=== PATIENT | male | born 1965 | race Caucasian/White ===

== ENCOUNTER 2022-09-21 13:14 | Emergency (ER) | payer OTHER, SELFPAY ==
--- NOTE | ~2022-09-21 | XR_ITS ---
EXAMINATION: XR SHOULDER, LEFT CLINICAL INFORMATION: Pain COMPARISON: None TECHNIQUE: Three views of the left shoulder. FINDINGS: No acute fracture or dislocation is seen.. Minimal acromioclavicular arthritis. Glenohumeral and acromioclavicular alignment is anatomic with normal joint space. No abnormal soft tissue calcifications. XR/XR shoulder LT min 2V IMPRESSION: No evidence of acute fracture. Minimal acromioclavicular arthritis.
[2022-09-21 13:38] VITALS: BP 143/82; PULSE 76; RESP 20; TEMP 36.3; O2SAT 98; BMI 32.9
--- NOTE | 2022-09-21 13:39 | ED.UPPEXIN ---
HPI - Extremity Injury (Upper) General Chief Complaint: Extremity Problem <ARIANNA Avalos - Last Filed: 09/21/22 13:41> Stated Complaint: L shoulder pain <ARIANNA Avalos - Last Filed: 09/21/22 13:41> Time Seen by Provider: 09/21/22 16:21 <ARIANNA Avalos - Last Filed: 09/21/22 13:41> Source: patient <Sheri Matson NP - Last Filed: 09/21/22 16:45> Mode of arrival: ambulatory <Sheri Matson NP - Last Filed: 09/21/22 16:45> Limitations: language barrier <Sheri Matson NP - Last Filed: 09/21/22 16:45> History of Present Illness HPI narrative: 57-year-old Bulgarian-speaking male with past medical history of chronic left shoulder pain related to arthritis presents to the emergency department today for an x-ray of his left shoulder. He states he was sent to the emergency department by his primary care provider for an x-ray to assess for worsening left shoulder arthritis. He denies any numbness, tingling, weakness in the left arm or shoulder. He denies any difficulty with range of motion. He denies chest pain, shortness of breath, fever, chills, left upper extremity edema. <Sheri Matson NP - Last Filed: 09/21/22 16:45> MD complaint: injury to: left and shoulder <Sheri Matson NP - Last Filed: 09/21/22 16:45> Related Data Allergies/Adverse Reactions: Allergies Allergy/AdvReac Type Severity Reaction Status Date / Time No Known Allergies Allergy Unverified 05/28/20 15:39 [No Known Allergies*] <ARIANNA Avalos - Last Filed: 09/21/22 13:41> Review of Systems Review of Systems: In addition to documented HPI above, the additional ROS was obtained: Constitutional: No Weight loss, No Fever, No Chills ENT/Mouth: No Ear Pain, No Nasal Congestion, No Sinus Pain, No Hoarseness, No sore throat, No Rhinorrhea, No Swallowing Difficulty Cardiovascular: No Chest Pain, No SOB Respiratory: No Cough, No Sputum, No Wheezing Gastrointestinal: No Nausea, No Vomiting, No Diarrhea, No Constipation, No Abdominal pain Genitourinary: No Dysuria, No Urinary Frequency, No Hematuria, No Urinary Incontinence/retention, No Urgency, No Flank Pain Musculoskeletal: No Myalgias, No Joint Swelling Skin: No Skin Lesions, No rash Neuro: No Weakness, No Numbness, No Paresthesias <Sheri Matson NP - Last Filed: 09/21/22 16:45> Yes all other systems are reviewed and are negative <Sheri Matson NP - Last Filed: 09/21/22 16:45> [facility] Past Medical History Attestation statement: The following information was validated with the patient. <Sheri Matson NP - Last Filed: 09/21/22 16:45> Source: old records reviewed <Sheri Matson NP - Last Filed: 09/21/22 16:45> Social History Social History: Social History Alcohol intake: former Smoked in Last 30 Days: Yes Advance Directives: No Advance Directives Information Provided: No <ARIANNA Avalos - Last Filed: 09/21/22 13:41> Physical Exam Vital Signs: Vital Signs: Last Vital Signs Temp 97.3 F 09/21/22 13:38 Pulse 76 09/21/22 13:38 Resp 20 09/21/22 13:38 BP 143/82 H 09/21/22 13:38 Pulse Ox 98 09/21/22 13:38 O2 Del Method 09/21/22 13:38 BMI result Body Mass Index 32.9 <ARIANNA Avalos - Last Filed: 09/21/22 13:41> Vital Signs: Last Vital Signs Temp 97.3 F 09/21/22 13:38 Pulse 76 09/21/22 13:38 Resp 20 09/21/22 13:38 BP 143/82 H 09/21/22 13:38 Pulse Ox 98 09/21/22 13:38 O2 Del Method 09/21/22 13:38 BMI result Body Mass Index 32.9 <Sheri Matson NP - Last Filed: 09/21/22 16:45> Nursing notes and vital signs reviewed. GENERAL APPEARANCE: A&0 x 4, generally well appearing, no acute distress HENMT: Normal to inspection, atraumatic, face symmetrical. Normal external ears, nose, and oropharynx clear. EYE: PERRLA, EOM intact, structures appear normal NECK: Supple without lymphadenopathy. No stiffness or restricted ROM. CHEST: Normal to inspection HEART: Normal rate and regular rhythm, normal S1/S2, no M/R/G LUNGS: LS CTA, moving air well. Able to speak in complete sentences. No crackles, wheezes, or rhonchi auscultated ABDOMEN: Soft, nontender, nondistended. Normal bowel sounds noted BACK: No CVAT, no obvious deformity EXTREMITIES: Moving all extremities without difficulty. No cyanosis, clubbing, or edema. Normal capillary refill. NEUROLOGICAL: Alert and oriented, moving all 4 extremities with equal strength. CN not formally tested but appearing grossly intact. Observed to ambulate with normal gait. Cognition normal SKIN: Warm and dry without any lesions, rash, or visible sores PSYCH: Cooperative, normal affect, normal thought process <Sheri Matson NP - Last Filed: 09/21/22 16:45> Course Course Course Narrative: RME - 57 y/o Bulgarian speaking male presenting with nontraumatic left shoulder pain that radiates to his left arm and hand for the last several months. No SOB or chest pain associated with the pain. XR ordered <ARIANNA Avalos - Last Filed: 09/21/22 13:41> Medical Decision Making Medical Decision Making MDM Narrative: 57-year-old Bulgarian-speaking male with past medical history of chronic left shoulder pain related to arthritis presents to the emergency department today for an x-ray of his left shoulder. He states he was sent to the emergency department by his primary care provider for an x-ray to assess for worsening left shoulder arthritis. Left shoulder x-ray with no evidence of acute fracture, or dislocation, minimal acromioclavicular arthritis noted. Pain Management discussed with patient and he states he has medication for his arthritis which works well and declines any additional medication. History physical and x-rays consistent with left shoulder arthritis. Low suspicion for nerve impingement, abscess. HPI, PE, diagnostics, and plan discussed with patient and family with no unanswered questions at this time. Patient educated to return to the emergency department with new, worsening, or concerning emergent symptoms. Recommended to follow-up with her primary care provider for further treatment and management. *Refer to Course for additional information on consultations, diagnostic interpretation, consultations, emergency department stay, conversations with patient and family, shared decision making with patient, and more information on medical decision making* <Sheri Matson NP - Last Filed: 09/21/22 16:45> Discharge Plan Discharge Clinical Impression: Chronic shoulder pain <ARIANNA Avalos - Last Filed: 09/21/22 13:41> Patient Disposition: Home, Self-Care <ARIANNA Avalos - Last Filed: 09/21/22 13:41> Instructions: Shoulder Pain (ED) <ARIANNA Avalos - Last Filed: 09/21/22 13:41> Additional Instructions: Your left shoulder x-ray shows no evidence of acute fracture or dislocation. Minimal acromioclavicular arthritis is noted <ARIANNA Avalos - Last Filed: 09/21/22 13:41> Referrals: Katherine Joseph MD [Primary Care Provider] - <ARIANNA Avalos - Last Filed: 09/21/22 13:41> Print Language: Bulgarian <ARIANNA Avalos - Last Filed: 09/21/22 13:41>
--- NOTE | 2022-09-21 16:30 | PC.NURSE ---
patient primary language Paraguayan , assessed with use of desk sergeant . a/ox4 . perrlla . breathing even and unlabored . lungs clear throughout .patient has limited movement and strength in left arm/ shoulder r/t arthritis . skin pink warm and dry . abdomen soft not tender . patient aware of plan of care .
--- NOTE | 2022-09-21 16:45 | PC.NURSE ---
a/ox4 . went over discharge instructions ordered by provider . patient to follow up with primary care care .
== END 2022-09-21 16:48 | disposition home or self-care (01) ==
PROVIDERS: Emergency Provider Emergency Medicine; PCP Internal Medicine
DX: M25.512 Pain in left shoulder (principal); Z79.899 Other long term (current) drug therapy
CPT/HCPCS: 73030; 99283; 99284

== ENCOUNTER 2022-11-03 22:27 | Emergency (ER) | payer OTHER, SELFPAY ==
--- NOTE | ~2022-11-03 | CT_ITS ---
EXAMINATION: NONCONTRAST HEAD CT INDICATION INFORMATION: Right-sided weakness COMPARISON: None TECHNIQUE: Noncontrast CT of the head was performed. DLP: 763 mGy-cm DOSE LOWERING TECHNIQUES: This CT examination was performed using dose optimization techniques as appropriate, variously including the following: - Automated exposure control - Adjustment of mA and/or kV according to patient size (this includes techniques or standardized protocols for targeted exams were dose is matched to indication/reason for exam; i.e. extremities or head) - Use of iterative reconstruction technique FINDINGS: There is no evidence of acute intracranial hemorrhage or territorial infarction. No abnormal mass-effect or midline shift is seen. Espinosa to white matter differentiation is well preserved. No extra-axial fluid collections are identified. The ventricles are normal in size. There is mild periventricular white matter hypoattenuation consistent with chronic small vessel ischemic disease. Mild volume loss is noted. Small lacunar infarcts noted in the bilateral basal ganglia. The osseous structures and soft tissues are normal. The mastoid air cells and visualized portions of the paranasal sinuses are well-aerated. CT/CT head for stroke IMPRESSION: No acute intracranial findings. This stroke protocol result was discussed with Dr. Cheatham on 11/03/2022 11:58 PM.
--- NOTE | ~2022-11-03 | CT_ITS ---
EXAMINATION: CT ANGIOGRAM HEAD CT ANGIOGRAM NECK CLINICAL INFORMATION: Right-sided weakness COMPARISON: CT head performed earlier same day TECHNIQUE: Initial noncontrast applied psychology chair imaging of the head and neck was performed. Comparison is made with noncontrast head CT from earlier today. Test bolus sequences followed by intravenous administration 100 mL of Omnipaque 350. Helical imaging was performed in the axial plane from the aortic arch to the skull vertex. Delayed postcontrast imaging of the head was also performed. The data was processed at the ambulatory technologist's workstation for generation of MIP sequences. Angled MIPs and volume rendered reformatted images were also generated at an offline 3D workstation. Stenoses are assessed in accordance with NASCET criteria unless otherwise indicated. This CT examination was performed using dose optimization techniques as appropriate, variously including the following: *Automated exposure control *Adjustment of mA and/or kV according to patient size (this includes techniques or standardized protocols for targeted exams where dose is matched to indication/reason for exam; i.e. extremities or head) *Use of iterative reconstruction technique DLP: 1643.43 mGy-cm mGy-cm FINDINGS: CT HEAD: Noncontrast head CT findings are discussed separately. No pathologic intra-axial enhancement within limitations of CT or regional oligemia. Evidence of prior functional endoscopic sinus surgery with left maxillary uncinectomy and antrostomy with widely patent postsurgical ostium. Polypoid mucosal disease within the nasal cavity, including opacification of the olfactory recesses. Sclerotic wall thickening of the left maxillary sinuses reflecting sequelae of chronic sinusitis. Mild mucosal disease of the frontal sinuses. CTA HEAD: The internal carotid arteries are normal. The MCA vascular complexes are normal bilaterally. The INESSA complexes are patent with a dominant left A1 segment. The intradural vertebral arteries are patent. The basilar artery is normal. The posterior cerebral arteries are widely patent. No proximal large vessel occlusion. No aneurysms and no high flow vascular malformations. No evidence of dural arteriovenous fistula. Delayed phase acquisition demonstrates normal opacification of the dural venous sinuses. CTA NECK: Limited evaluation due to motion artifact. Two vessel branching pattern of the arch with left common carotid artery arising from the brachiocephalic trunk. Origins of the great vessels are widely patent. The common carotid arteries, carotid bifurcations and bilateral internal carotid arteries are patent, noting retropharyngeal course of the left common carotid and proximal external carotid arteries. The left vertebral artery is dominant. The vertebral artery ostia are widely patent. Both vertebral arteries are widely patent throughout their extracranial cervical course, noting artifactual attenuated opacification of the left V1 segment. CT NECK: Grossly unremarkable appearance of the aerodigestive tract. The salivary glands are unremarkable. The thyroid gland is unremarkable. No pathologically enlarged cervical chain lymph nodes. Multilevel moderate discogenic disease with endplate osteophytes, uncovertebral joint hypertrophy, and mild facet arthrosis osteophytes The visualized lung apices and upper mediastinum are within normal limits. Background of congenital cervical spinal canal stenosis resulting in multilevel apparent moderate spinal canal stenosis, particularly at C3-C4. Multilevel moderate to severe neural foraminal stenosis. CT/CT angio head neck stroke IMPRESSION: 1. No acute arterial occlusion or hemodynamically significant stenosis within the head or neck. 2. Background of congenital cervical spinal canal stenosis with superimposed spondylosis contributing to multilevel apparent moderate spinal canal stenosis and high-grade neural foraminal narrowing. Consider further evaluation with cervical spine MRI if there is referrable cervical myelopathy/radiculopathy.
[2022-11-03 22:45] VITALS: BP 171/86; PULSE 102; PULSE 106; RESP 16; O2SAT 95; O2SAT 98; BMI 37.3
[2022-11-03 22:50] VITALS: BP 157/94; PULSE 91; PULSE 93; RESP 15; TEMP 36.4; O2SAT 97
--- NOTE | 2022-11-03 23:26 | ECG_ITS ---
Test Reason : weakness Blood Pressure : / mmHG Vent. Rate : 079 BPM Atrial Rate : 079 BPM P-R Int : 170 ms QRS Dur : 088 ms QT Int : 370 ms P-R-T Axes : 069 019 025 degrees QTc Int : 424 ms Normal sinus rhythm Normal ECG When compared with ECG of 19-OCT-2018 03:20, No significant change was found Referred By: Manoj Menjivar Electronically Signed By:EDGARDO FIELDS
--- NOTE | 2022-11-03 23:26 | ED_ITS ---
HPI - Neuro Symptoms/Deficit General Chief Complaint: ETOH/Substance Use Stated Complaint: ETOH Time Seen by Provider: 11/03/22 22:58 Source: patient Mode of arrival: EMS Limitations: no limitations History of Present Illness HPI Narrative: Patient with history of alcohol abuse was at his sister's house had few drinks around 21:00 and started walking noticed has difficulty walking because of the weakness to the right side patient came here at 22:45. No headache no fall. No tremors Related Data Previous Rx's Medication Instructions Recorded folic acid 1 mg tablet 1 mg PO DAILY #90 tabs 11/04/22 thiamine HCl (vitamin B1) 100 mg 100 mg PO DAILY #90 tabs 11/04/22 tablet Allergies Allergy/AdvReac Type Severity Reaction Status Date / Time No Known Allergies Allergy Unverified 05/28/20 15:39 [No Known Allergies*] Review of Systems Review of Systems: Yes all other systems are reviewed and are negative [facility] Social History Social History Alcohol intake: current Smoked in Last 30 Days: Yes Use of substances other than those prescribed or required for medical reasons: No Substance Use Type: Marijuana Advance Directives: No Advance Directives Information Provided: No Physical Exam Vital Signs: Vital Signs: Last Vital Signs Temp 97.6 F 11/03/22 22:50 Pulse 91 11/03/22 22:50 Resp 15 11/03/22 22:50 BP 157/94 H 11/03/22 22:50 Pulse Ox 97 11/03/22 22:50 O2 Del Method 11/03/22 22:50 BMI result Body Mass Index 37.3 Appearance: Alert. Oriented X3. No acute distress. Eyes: PERRLA, No Nystagmus ENT: Pharynx normal. Oral Mucosa moist Neck: Normal inspection. Neck supple. CVS: Normal heart rate and rhythm. Pulses normal. Respiratory: No respiratory distress. Equal air entry bilateral, no wheezing/rales/rhonchi Abdomen: Soft and nontender. Bowel sounds are present, no mass palpable, no CVA tenderness Skin: Skin warm and dry. Normal skin color. Normal skin turgor. Extremities: No lower extremity edema. No calf tenderness Neuro: Oriented X 3. Right-sided weakness-4/5. No sensory deficit.No cerebellar signs , cranial nerves II-XII intact Medications Administered Discontinued Medications Generic Name Dose Route Start Last Admin Trade Name Polina PRN Reason Stop Dose Admin Iohexol 100 ml 11/04/22 00:18 11/04/22 00:18 Iohexol 350 Mg/Ml 100 Ml Infus..Btl IV 11/04/22 00:19 100 ml ONCE ONE Administration Lorazepam 1 mg 11/04/22 00:03 11/04/22 00:14 Lorazepam 2 Mg/Ml Vial IVPUSH 11/04/22 00:04 1 mg ONCE ONE Administration Morphine Sulfate 4 mg 11/03/22 23:39 11/04/22 00:14 Morphine Sulfate 4 Mg/Ml Cartridge IVPUSH 11/03/22 23:40 4 mg ONCE ONE Administration Protocol Ondansetron HCl 4 mg 11/03/22 23:39 11/04/22 00:14 Ondansetron Hcl 4 Mg/2 Ml Vial IVPUSH 11/03/22 23:40 4 mg ONCE ONE Administration Medical Decision Making Medical Decision Making [facility] Narrative: 23;55 patient re-examined plain CT scan was negative for acute patient able to move right upper extremity lower extremity pretty well now complaining of pain in the left arm NIHSS score is 0 patient is extremely anxious and intoxicated Patient back to normal at time of discharge no focal deficits noticed CTA is negative for LVO, patient does have chronic neck pain at this time there is no signs of CVA discharge patient home advised to stop drinking and start taking thiamine and folic acid Differential Diagnosis CVA/brain tumor/metabolic encephalopathies-/alcohol intoxication Lab Data [facility] Lab Attestation statement: I reviewed the patient's lab results. 11/03/22 23:30 11/03/22 23:30 Labs: Lab Results 11/03/22 11/03/22 11/03/22 Range/Units 23:30 23:30 23:30 WBC 8.8 (4.8-10.8) X10*3/uL RBC 4.19 L (4.60-5.80) X10*6/uL Hgb 12.8 L (14.0-18.0) g/dl Hct 38.5 L (42.0-52.0) % MCV 91.9 (80.0-98.0) fL MCH 30.5 (27.0-33.0) pg MCHC 33.2 (31.0-36.0) g/dl RDW 13.7 (11.0-16.0) % Plt Count 169 (160-400) X10*3/uL MPV 10.5 (9.4-12.4) fL Immature Gran % (Auto) 0.2 (0.0-0.4) % Neut % (Auto) 52.1 (45-73) % Lymph % (Auto) 32.8 (20-40) % Banner % (Auto) 9.7 (2-11) % Eos % (Auto) 4.4 H (0-4) % Baso % (Auto) 0.8 (0-2) % Lymph # (Auto) 2.9 (1.2-4.9) X10*3/uL Banner # (Auto) 0.9 (0.1-1.2) X10*3/uL Eos # (Auto) 0.4 (0.0-0.4) X10*3/uL Baso # (Auto) 0.1 (0.0-0.2) X10*3/uL Abs Immat Gran (auto) 0.02 (0.00-0.03) X10*3/uL Absolute Neuts (auto) 4.6 (2.0-8.3) x10*3/uL Absolute Nucleated RBC 0.000 (0.0-0.012) X10*3/uL Nucleated RBC % (auto) 0.0 (0.0-0.2) /100WBC PT 11.1 (10.0-13.1) SEC INR 1.0 (0.9-1.1) APTT 28.1 (26.0-36.4) SEC Sodium 141 (135-145) mmol/L Potassium 4.0 (3.3-5.1) mmol/L Chloride 110 H (96-108) mmol/L Carbon Dioxide 20 L (22-29) mmol/L Anion Gap 15 (12-20) BUN 18 H (9-16) mg/dL Creatinine 1.06 (0.5-1.4) mg/dL Estim Creat Clear Calc 102.3 Estimated GFR > 60 Random Glucose 157 H (60-115) mg/dL Calcium 8.7 (8.4-10.2) mg/dL Magnesium 2.1 (1.6-2.6) mg/dL Total Bilirubin 0.2 (0.0-1.0) mg/dL AST 16 (5-37) U/L ALT 17 (0-40) U/L Alkaline Phosphatase 59 (39-117) U/L Total Creatine Kinase 170 (38-174) U/L Troponin I High Sens (<3.5-35.0) ng/L Total Protein 6.8 (6.5-8.0) g/dL Albumin 3.8 (3.5-5.0) g/dL Ethyl Alcohol 47 mg/dL 11/03/22 Range/Units 23:30 WBC (4.8-10.8) X10*3/uL RBC (4.60-5.80) X10*6/uL Hgb (14.0-18.0) g/dl Hct (42.0-52.0) % MCV (80.0-98.0) fL MCH (27.0-33.0) pg MCHC (31.0-36.0) g/dl RDW (11.0-16.0) % Plt Count (160-400) X10*3/uL MPV (9.4-12.4) fL Immature Gran % (Auto) (0.0-0.4) % Neut % (Auto) (45-73) % Lymph % (Auto) (20-40) % Banner % (Auto) (2-11) % Eos % (Auto) (0-4) % Baso % (Auto) (0-2) % Lymph # (Auto) (1.2-4.9) X10*3/uL Banner # (Auto) (0.1-1.2) X10*3/uL Eos # (Auto) (0.0-0.4) X10*3/uL Baso # (Auto) (0.0-0.2) X10*3/uL Abs Immat Gran (auto) (0.00-0.03) X10*3/uL Absolute Neuts (auto) (2.0-8.3) x10*3/uL Absolute Nucleated RBC (0.0-0.012) X10*3/uL Nucleated RBC % (auto) (0.0-0.2) /100WBC PT (10.0-13.1) SEC INR (0.9-1.1) APTT (26.0-36.4) SEC Sodium (135-145) mmol/L Potassium (3.3-5.1) mmol/L Chloride (96-108) mmol/L Carbon Dioxide (22-29) mmol/L Anion Gap (12-20) BUN (9-16) mg/dL Creatinine (0.5-1.4) mg/dL Estim Creat Clear Calc Estimated GFR Random Glucose (60-115) mg/dL Calcium (8.4-10.2) mg/dL Magnesium (1.6-2.6) mg/dL Total Bilirubin (0.0-1.0) mg/dL AST (5-37) U/L ALT (0-40) U/L Alkaline Phosphatase (39-117) U/L Total Creatine Kinase (38-174) U/L Troponin I High Sens 5.2 (<3.5-35.0) ng/L Total Protein (6.5-8.0) g/dL Albumin (3.5-5.0) g/dL Ethyl Alcohol mg/dL Independent Interpretation I performed an independent interpretation of an: EKG Interpretation: Normal sinus rhythm heart rate 79 beats per minute, no acute ST-T no acute ischemia NIH Stroke Scale Time: 23:29 Level of Consciousness: Alert Level of Consciousness Questions: Answers both questions correctly Level of Consciousness Commands: Performs both tasks correctly Best Gaze: Normal Visual: No visual loss Facial Palsy: Normal Motor Arm (Right): Drift Motor Arm (Left): No drift Motor Leg (Right): Drift Motor Leg (Left): No drift Limb Ataxia: Absent Sensory: Normal Best Language: No aphasia Dysarthia: Normal Extinction and Inattention: No abnormality Score: 2 Discharge Plan Discharge Clinical Impression: Alcohol abuse Patient Disposition: Home, Self-Care Instructions: Alcohol Use Disorder (ED) Additional Instructions: Stop drinking alcohol Take thiamine and folic acid daily Follow with PCP Prescriptions: New thiamine HCl (vitamin B1) 100 mg tablet 100 mg PO DAILY Qty: 90 0RF folic acid 1 mg tablet 1 mg PO DAILY Qty: 90 0RF Interventions: [place]-Suicide Risk Severity Scale Last Done: 11/03/22 22:50 ED Discharge Assessment Last Done: 11/04/22 01:41 Discharge Date/Time: 11/04/22 01:41
[2022-11-03 23:42] LABS: MANUAL DIFF FLAG NO
[2022-11-03 23:44] LABS: Basophils Absolute Auto 0.1 X10*3/uL (0.0-0.2); Basophils Percent Auto 0.8 % (0-2); Eosinophils Absolute Auto 0.4 X10*3/uL (0.0-0.4); Eosinophils Percent Auto 4.4 % (0-4); Hematocrit 38.5 % (42.0-52.0); Hemoglobin 12.8 g/dl (14.0-18.0); Imm Gran Abs Auto 0.02 X10*3/uL (0.00-0.03); Imm Gran Pct Auto 0.2 % (0.0-0.4); Lymphocytes Absolute Auto 2.9 X10*3/uL (1.2-4.9); Lymphocytes Percent Auto 32.8 % (20-40); Mean Corpuscular HGB Conc 33.2 g/dl (31.0-36.0); Mean Corpuscular Hemoglobin 30.5 pg (27.0-33.0); Mean Corpuscular Volume 91.9 fL (80.0-98.0); Mean Platelet Volume 10.5 fL (9.4-12.4); Monocytes Absolute Auto 0.9 X10*3/uL (0.1-1.2); Monocytes Percent Auto 9.7 % (2-11); Neutrophils Absolute Auto 4.6 x10*3/uL (2.0-8.3); Neutrophils Percent Auto 52.1 % (45-73); Platelet Count 169 X10*3/uL (160-400); Red Blood Count 4.19 X10*6/uL (4.60-5.80); Red Cell Distribution Width 13.7 % (11.0-16.0); White Blood Count 8.8 X10*3/uL (4.8-10.8)
[2022-11-03 23:50] LABS: Prothrombin Time 11.1 SEC (10.0-13.1)
[2022-11-03 23:52] LABS: Partial Thromboplastin Time 28.1 SEC (26.0-36.4)
[2022-11-03 23:56] LABS: Stroke Lab Use COMPLETE
[2022-11-04 00:07] LABS: Troponin-I High Sensitivity 5.2 ng/L (<3.5-35.0)
[2022-11-04 00:14] LABS: Alanine Aminotransferase 17 U/L (0-40); Albumin Level 3.8 g/dL (3.5-5.0); Alkaline Phosphatase 59 U/L (39-117); Anion Gap 15 (12-20); Aspartate Amino Transferase 16 U/L (5-37); Bilirubin Total 0.2 mg/dL (0.0-1.0); Blood Urea Nitrogen 18 mg/dL (9-16); Calcium 8.7 mg/dL (8.4-10.2); Carbon Dioxide 20 mmol/L (22-29); Chloride 110 mmol/L (96-108); Creatinine Clr Calc Pharmacy 102.3; Estimated Glomerular Filt Rate > 60; Ethanol 47 mg/dL; Glucose Random 157 mg/dL (60-115); Magnesium 2.1 mg/dL (1.6-2.6); Sodium 141 mmol/L (135-145); Total Protein 6.8 g/dL (6.5-8.0)
[2022-11-04] MEDS: ondansetron HCL 4 MG/2 ML VIAL IVPUSH (00:14)
[2022-11-04] MEDS: Morphine Sulfate 4 MG/ML CARTRIDGE IVPUSH (00:14)
[2022-11-04] MEDS: LORazepam 2 MG/ML VIAL 1 MG IVPUSH (00:14)
[2022-11-04] MEDS: iohexoL 350 MG/ML 100 ML INFUS..BTL IV (00:18)
== END 2022-11-04 01:41 | disposition home or self-care (01) ==
PROVIDERS: Emergency Provider Internal Medicine
DX: F10.10 Alcohol abuse, uncomplicated (principal); Y90.2 Blood alcohol level of 40-59 mg/100 ml; R53.1 Weakness; F41.9 Anxiety disorder, unspecified; F12.90 Cannabis use, unspecified, uncomplicated
CPT/HCPCS: 36415; 70450; 70496; 70498; 80053; 82077; 82550; 83735; 84484; 85025; 85610; 85730; 93005; 96374; 96375; 99284; 99285; J2060; J2270; J2405; Q9967

== ENCOUNTER 2025-06-21 08:14 | Emergency (ER) | payer OTHER, SELFPAY ==
--- NOTE | ~2025-06-21 | CT_ITS ---
CLINICAL HISTORY: Right lower abdominal pain, right inguinal hernia CT abdomen and pelvis with contrast Comparison: CT - CT ABDOMEN PELVIS W IV CON - 06/21/25 09:16 EDT Findings: No consolidation or effusion. The liver, gallbladder, spleen, adrenal glands and pancreas are unremarkable. The kidneys, ureters are within normal limits. The bladder is significantly thick-walled. The prostate gland is unremarkable. There is no bowel obstruction or free air. There is gas and fluid throughout nondistended small and large bowel, nonspecific. Right-sided fat containing inguinal hernia. Mild atherosclerotic disease noted. No retroperitoneal or mesenteric adenopathy. No acute osseous finding. Impression: Abnormally thick-walled bladder. Correlation for cystitis. Gas and fluid throughout nondistended small and large bowel, nonspecific. This can be seen with mild enteritis. No obstruction, free air or abscess. Additional incidental findings. This document has been electronically signed by: Ziyad Morris MD on 06/21/2025 10:14:02
[2025-06-21 08:17] VITALS: BP 140/89; PULSE 96; RESP 18; TEMP 36.3; O2SAT 97; BMI 30.9
[2025-06-21 08:46] LABS: Hematocrit 37.4 % (42.0-52.0); Hemoglobin 12.5 g/dl (14.0-18.0); Imm Gran Abs Auto 0.03 X10*3/uL (0.00-0.03); Imm Gran Pct Auto 0.2 % (0.0-0.4); Lymphocytes Absolute Auto 2.6 X10*3/uL (1.2-4.9); MANUAL DIFF FLAG NO; Mean Corpuscular HGB Conc 33.4 g/dl (31.0-36.0); Mean Corpuscular Hemoglobin 30.8 pg (27.0-33.0); Mean Corpuscular Volume 92.1 fL (80.0-98.0); NRBC Abs Auto 0.000 X10*3/uL (0.0-0.012); NRBC Pct Auto 0.0 /100WBC (0.0-0.2); Platelet Count 168 X10*3/uL (160-400); Red Blood Count 4.06 X10*6/uL (4.60-5.80); White Blood Count 12.2 X10*3/uL (4.8-10.8)
--- NOTE | 2025-06-21 08:56 | PC.NURSE ---
Reports lower abdominal pain x 4 days along with a pain near his penis- states area is bulging. Reports vomited x 2 yesterday, nausea, and diarrhea. niece at bedside stating patients brother yesterday, states patient has hx of umbilical hernia repair in the past.
--- OUTSIDE RECORDS SUMMARY | 2025-06-21 09:01 | XMS_ITS | Encounter Summary ---
Author Organization [employer] Address [address] [place] [address] Care Team Providers Care Press Machine Operator Name Role Phone Katheirne Joseph MD Primary Care Provide r Reason for Visit * Reason Onset Date Comments Med Refill 01/06/2023 Encounter Details Date Type Department Care Team (Late st Contact Info) Description 01/06/2023 Telephone [facility] [address] [place] [address] Katherine Joseph MD [address] [place] [address] Med Refill Social History Tobacco Use Types Packs/Day Years Used Date Smoking Tobacco: Every Day Cigarettes Passive Smoke Exposure: Current Sex and Gender Information Value Date Recorded Sex Assigned at Male 07/11/2022 10:14 AM EDT Legal Sex Male 10:14 AM EDT Gender Identity Male 07/11/2022 10:14 AM EDT Sexual Orientation Straight 07/11/2022 10 :14 AM EDT documented as of this encounter Miscellaneous Notes * Telephone Encounter - Deanne Chan LPN - 01/06/2023 1:35 PM EDT Medication pended to PCP awaiting approval. * Telephone Encounter - Jewell James Adin - 01/06/2023 1:19 PM EDT Tc from pt requesting med refill on Acetaminophen ER 650 Mg Tablet, extended release Please sent to [facility] - [place], [place] - [address] documented in this encounter Plan of Treatment Upcoming Encounters Date Type Department Care Team (Late st Contact Info) Description 08/18/2025 11:15 AM EST Office Visit [facility] [address] [place] [address] Katherine Joseph MD [address] [place] [address] documented as of this encounter Visit Diagnoses Not on filedocumented in this encounter Care Teams Press Machine Operator Relationship Specialty Start Date End Date Katherine Joseph MD [address] [place] [id number] PCP - General Family Medicine 05/23/18 documented as of this encounter
--- OUTSIDE RECORDS SUMMARY | 2025-06-21 09:01 | XMS_ITS | Encounter Summary ---
Author Organization [facility] Address [address] [facility] 7t [place] [address] Care Team Providers Care Post Anesthesia Nurse Name Role Phone Katherine Joseph MD Primary Care Provide r Reason for Visit * Reason Onset Date Comments Appointment Request 01/06/2023 Encounter Details Date Type Department Care Team (Late st Contact Info) Description 01/06/2023 Telephone [facility] MED[facility]INE [address] [place] [address] [phone] Katherine Joseph MD [address] [place], [place] [phone] Appointment Request Social History Tobacco Use Types Packs/Day Years [...] encounter Miscellaneous Notes * Telephone Encounter - Jewell Oakley - 01/06/2023 1:18 PM EDT Tc from pt and DRUM TESTER requesting an appt with provider in regards to program to gain more hours. Please contact DRUM TESTER at [phone] documented in this encounter Plan of Treatment Upcoming Encounters Date Type Department Care Team (Late st Contact Info) Description 08/18/2025 11:15 AM EST Office Visit [facility] [address] [place] [phone] Katherine Joseph MD [address] [place], [place] [phone] documented as of this encounter Visit Diagnoses Not on filedocumented in this encounter Care Teams Post Anesthesia Nurse Relationship Specialty Start Date End Date Katherine Joseph MD [address] [place], [place] [phone] PCP - General Family Medicine 05/23/18 documented as of this encounter
--- OUTSIDE RECORDS SUMMARY | 2025-06-21 09:01 | XMS_ITS | Encounter Summary ---
Author Organization [employer] Address [address] [facility] 7t [place] [address] Care Team Providers Care Digital Marketing Apprentice Name Role Phone Katherine Joseph MD Primary Care Provide r Reason for Visit * Reason Comments Med Refill Encounter Details Date Type Department Care Team ([facility] st Contact Info) Description 01/01/2024 Refill [facility] [address] [place], [place] [phone] Katherine Joseph MD [address] [place], [place] [phone] Social History Tobacco Use Types Packs/Day Years Used Date Smoking Tobacco: Some Days Cigarettes Passive Smoke Exposure: Current Alcohol Use Standard Drinks/Week Comments Yes 0 (1 standard drink = 0.6 oz pur e alcohol) oca, beer Housing Stability Answer Date Recorded What is your housing situation today? I have rocconorberto villanueva 07/24/[address] you li ve. Do you have problems with any of the following? None of the above 07/24/2023 Food Insecurity Answer Date Recorded Within the past 12 months, y ou worried that your food would run out before you got money to buy more: Never True 07/24/2023 Within the past 12 months,th e food you bought just didn't last and you didn't have enough money to get more: Never True Transportation Answer Date Recorded In the past 12 months, has l ack of transportation kept you from medical appts, meetings, work or from getting things needed for daily living? No 07/24/2023 Utilities Answer Date Recorded In the past 12 months, has t he electric, gas, oil or water company threatened to shut off services in your home? No 07/24/2023 Depression Answer Date Recorded Patient Health Questionnaire-2 Score 0 07/24/2023 Sex and Gender Information Value Date Recorded Sex Assigned at Male 07/11/2022 10:14 AM EDT Legal Sex Male 10:14 AM EDT Gender Identity Male 07/11/2022 10:14 AM EDT Sexual Orientation Straight 07/11/2022 10 :14 AM EDT documented as of this encounter Plan of Treatment Upcoming Encounters Date Type Department Care Team (Late st Contact Info) Description 08/18/2025 11:15 AM EST Office Visit [facility] [address] [place] [address] Katherine Joseph MD [address] [place] [phone] documented as of this encounter Visit Diagnoses Not on filedocumented in this encounter Care Teams Digital Marketing Apprentice Relationship Specialty Start Date End Date Katherine Joseph MD [address] [place] [phone] PCP - General Family Medicine 05/23/18 documented as of this encounter
--- OUTSIDE RECORDS SUMMARY | 2025-06-21 09:01 | XMS_ITS | Encounter Summary ---
Author Organization [employer] [facility] Address [address] [facility] 7t [place] [address] Care Team Providers Care Assistant Secretary Name Role Phone Katherine Joseph MD Primary Care Provide r Encounter Details Date Type Department Care Team (Late Contact Info) Description 10/12/2022 Orders Only [facility] MED[facility]INE [address] [place] [phone] Dana Vidal MD [address] [place] [phone] Blurry vision (Primary Dx) Social History Tobacco Use Types Packs/Day Years Used Date Smoking Tobacco: Never Assessed Sex and Gender Information Value Date Recorded Sex Assigned at Male 07/11/2022 10:14 AM EDT Legal Sex Male 10:14 AM EDT Gender Identity Male 07/11/2022 10:14 AM EDT Sexual Orientation Straight 07/11/2022 10 :14 AM EDT documented as of this encounter Plan of Treatment Upcoming Encounters Date Type Department Care Team (Late st Contact Info) Description 08/18/2025 11:15 AM EST Office Visit [facility] [address] [place] [phone] Katherine Joseph MD [address] [place] [phone] documented as of this encounter Visit Diagnoses Diagnosis Blurry vision- Primary Other specified visual disturbances documented in this encounter Care Teams Assistant Secretary Relationship Specialty Start Date End Date Katherine Joseph MD [address] [place] [address] [phone] PCP - General Family Medicine 05/23/18 documented as of this encounter
--- OUTSIDE RECORDS SUMMARY | 2025-06-21 09:01 | XMS_ITS | Encounter Summary ---
Author Organization [employer] Address [address] [facility] 7t [place] [address] Care Team Providers Care Restuarant Crew Worker Name Role Phone Katherine Joseph MD Primary Care Provide r Encounter Details Date Type Department Care Team (Late st Contact Info) Description 06/21/2025 Orders Only [facility]PART[facility] Provider, Generic External Data Social History Tobacco Use Types Packs/Day Years Used Date Smoking Tobacco: Some Days Cigarettes Passive Smoke Exposure: Current Alcohol Use Standard Drinks/Week Comments Yes 0 (1 standard drink = 0.6 oz pur e alcohol) oca, beer Alcohol Answer Date Recorded Frequency of Alcohol Consumption Not on file 04/29/2024 Average Number of Drinks Not on file 024 Frequency of Binge Drinking Not on file 04/11 Score 0 04/29/2024 Depression Answer Date Recorded Patient Health Questionnaire-9 Score 0 07/30/2024 Patient Health Questionnaire-9 Score 0 07/30/2024 Last PHQ-9: Questionnaire Data Not on file 1 09/29/2023 Housing Stability Answer Date Recorded What is your housing situation today? I have rocco villanueva 07/24/[address] you [...] Date Recorded Patient Health Questionnaire-2 Score 0 07/30/2024 Internet Access Answer Date Recorded Internet Access Q1 Yes 05/13/2024 Internet Access Q2 Not on file 05/13/2024 Sex and Gender Information Value Date Recorded Sex Assigned at Male 07/11/2022 10:14 AM EDT Legal Sex Male 10:14 AM EDT Gender Identity Male 07/11/2022 10:14 AM EDT Sexual Orientation Straight 07/11/2022 10 :14 AM EDT documented as of this encounter Plan of Treatment Upcoming Encounters Date Type Department Care Team (Late st Contact Info) Description 08/18/2025 11:15 AM EST Office Visit [facility] [address] [place] [phone] Katherine Joseph MD [address] [place] [phone] documented as of this encounter Procedures Procedure Name Priority Date/Time Associated Diagnosis Comments CBC WITH AUTO DIFFERENTIAL Routine 06/21/2025 8:40 AM EDT documented in this encounter Results * (ABNORMAL) CBC auto differential (06/21/2025 8:40 AM EDT) White Blood Count 12.2(H) 4.8 - 10.8 X10*3/uL [facility] Red Blood Count 4.06(L) 4.60 - 5.80 X10*6/uL [facility] Hemoglobin 12.5(L) 14.0 - 18.0 g/dl [facility] Hematocrit 37.4(L) 42.0 - 52.0 % [facility] Mean Corpuscular Volume 92.1 80.0 - 98.0 fL [facility] Mean Corpuscular Hemoglobin 30.8 27.0 - 33.0 pg [facility] Mean Corpuscular HGB Conc 33.4 31.0 - 36.0 g/dl [facility] Red Cell Distribution Width 13.1 11.0 - 16.0 % [facility] Platelet Count 168 160 - 400 X10*3/uL [facility] Mean Platelet Volume 10.1 9.4 - 12.4 fL [facility] Neutrophils Percent Auto 67.6 45 - 73 % [facility] Imm Gran Pct Auto 0.2 0.0 - 0.4 % [facility] Lymphocytes Percent Auto 21.2 20 - 40 % [facility] Monocytes Percent Auto 8.7 2 - 11 % [facility] Eosinophils Percent Auto 2.0 0 - 4 % [facility] Basophils Percent Auto 0.3 0 - 2 % [facility] NRBC Pct Auto 0.0 0.0 - 0.2 /100WBC [facility] Neutrophils Absolute Auto 8.2 2.0 - 8.3 x10*3/uL [facility] Imm Gran Abs Auto 0.03 0.00 - 0.03 X10*3/uL [facility] Lymphocytes Absolute Auto 2.6 1.2 - 4.9 X10*3/uL [facility] Monocytes Absolute Auto 1.1 0.1 - 1.2 X10*3/uL [facility] Eosinophils Absolute Auto 0.2 0.0 - 0.4 X10*3/uL [facility] Basophils Absolute Auto 0.0 0.0 - 0.2 X10*3/uL [facility] NRBC Abs Auto 0.000 0.0 - 0.012 X10*3/uL [facility] 06/21/2025 8:40 AM EDT 06/21/2025 8:43 AM EDT us Generic External Data Provider LAB BLOOD ORDERAB LES Final Result [facility] [address] [place] [address] [phone] documented in this encounter Visit Diagnoses Not on filedocumented in this encounter Additional Health Concerns Assessment Noted Time PHQ-9 Depression Total Score: 0 07/30/20 24 11:00 AM EST documented as of this encounter Care Teams Restuarant Crew Worker Relationship Specialty Start Date End Date Katherine Joseph MD [address] [place] [phone] PCP - General Family Medicine 05/23/18 documented as of this encounter
--- OUTSIDE RECORDS SUMMARY | 2025-06-21 09:01 | XMS_ITS | Encounter Summary ---
Author Organization [facility] Address [address] [facility] 7t [place] [address] Care Team Providers Care C Architect Name Role Phone Katherine Joseph MD Primary Care Provide r Reason for Visit * Reason Comments Med Refill Encounter Details Date Type Department Care Team ([facility] Contact Info) Description 2023 Refill [facility] [address] [place] [phone] Katherine Joseph MD [address] [place] [phone] Social History Tobacco Use Types Packs/Day Years [...] Encounters Date Type Department Care Team (Late Contact Info) Description 08/18/2025 11:15 AM EST Office Visit [facility]INE [address] [place] [phone] Katherine Joseph MD [address] [place] [phone] documented as of this encounter Visit Diagnoses Not on filedocumented in this encounter Care Teams C Architect Relationship Specialty Start Date End Date Katherine Joseph MD [address] [place] [address] [phone] PCP - General Family Medicine 05/23/18 documented as of this encounter
--- OUTSIDE RECORDS SUMMARY | 2025-06-21 09:01 | XMS_ITS | Encounter Summary ---
Author Organization [employer] Address [address] [facility] 7t [place] [address] Care Team Providers Care Table Tender Sludge Name Role Phone Katherine Joseph MD Primary Care Provide r Reason for Visit * Reason Comments Med Refill Encounter Details Date Type Department Care Team ([facility] st Contact Info) Description 04/03/2024 Refill [facility] [address] [place], [place] [phone] Katherine Joseph MD [address] [place], [place] [phone] Encounter for preventive care Social History Tobacco Use Types Packs/Day Years [...] Description 08/18/2025 11:15 AM EST Office Visit [facility]INE [address] [place] [address] Katherine Joseph MD [address] [place] [phone] documented as of this encounter Visit Diagnoses Diagnosis Encounter for preventive care documented in this encounter Care Teams Table Tender Sludge Relationship Specialty Start Date End Date Katherine Joseph MD [address] [place] [phone] PCP - General Family Medicine 05/23/18 documented as of this encounter
--- OUTSIDE RECORDS SUMMARY | 2025-06-21 09:01 | XMS_ITS | Encounter Summary ---
Author Organization [employer] Address [address] [facility] 7t [place] [address] Care Team Providers Care Tire Fabricator Name Role Phone Katherine Joseph MD Primary Care Provide r Reason for Visit * Reason Comments Med Refill Encounter Details Date Type Department Care Team ([facility] st Contact Info) Description 07/23/2024 Refill [facility] [address] [place], [place] [phone] Katherine Joseph MD [address] [place] [address] Social History Tobacco Use Types Packs/Day Years [...] Not on file 04/11 Score 0 04/29/2024 Housing Stability Answer Date Recorded What is [...] Recorded Patient Health Questionnaire-2 Score 0 07/24/2023 Internet Access Answer Date Recorded Internet Access [...] Description 08/18/2025 11:15 AM EST Office Visit [facility] [address] [place] [phone] Katherine Joseph MD [address] [place] [phone] documented as of this encounter Visit Diagnoses Not on filedocumented in this encounter Care Teams Tire Fabricator Relationship Specialty Start Date End Date Katherine Joseph MD [address] [place] [phone] PCP - General Family Medicine 05/23/18 documented as of this encounter
--- OUTSIDE RECORDS SUMMARY | 2025-06-21 09:01 | XMS_ITS | Encounter Summary ---
Author Organization [employer] Address [address] [facility] 7t [place] [address] Care Team Providers Care Bone Process Operator Name Role Phone Katherine Joseph MD Primary Care Provide r Encounter Details Date Type Department Care Team (Late st Contact Info) Description 01/06/2023 Orders Only [facility] [address] [place] [address] Deanne Chan LPN Social History Tobacco Use Types Packs/Day Years [...] Description 08/18/2025 11:15 AM EST Office Visit [facility] [address] [place] [address] Katherine Joseph MD [address] [place] [phone] documented as of this encounter Visit Diagnoses Not on filedocumented in this encounter Care Teams Bone Process Operator Relationship Specialty Start Date End Date Katherine Joseph MD [address] [place] [address] [phone] PCP - General Family Medicine 05/23/18 documented as of this encounter
--- OUTSIDE RECORDS SUMMARY | 2025-06-21 09:01 | XMS_ITS | Encounter Summary ---
Author Organization [employer] [facility] Address [address] [facility] 7t [place] [address] Care Team Providers Care Remelt Pan Tank Operator Name Role Phone Katherine Joseph MD Primary Care Provide r Encounter Details Date Type Department Care Team (Late st Contact Info) Description 05/23/2023 Orders Only [facility] MEDICINE [address] [place] [phone] Provider, MD Jasbir Social History Tobacco Use Types Packs/Day Years [...] Description 08/18/2025 11:15 AM EST Office Visit [facility] MEDICINE [address] [place] [phone] Katherine Joseph MD [address] [place] [phone] documented as of this encounter Procedures Procedure Name Priority Date/Time Associated Diagnosis Comments HM COLONOSCOPY Routine 10/12/2016 documented in this encounter Results * Hm Colonoscopy (10/12/2016) Historical Provider HEALTH MAINTENANCE Final Result documented in this encounter Visit Diagnoses Not on filedocumented in this encounter Care Teams Remelt Pan Tank Operator Relationship Specialty Start Date End Date Katherine Joseph MD [address] [place] [address] PCP - General Family Medicine 05/23/18 documented as of this encounter
--- OUTSIDE RECORDS SUMMARY | 2025-06-21 09:01 | XMS_ITS | Encounter Summary ---
Author Organization [employer] Address [address] [facility] 7t [place] [address] Care Team Providers Care Managing Director Name Role Phone Katherine Joseph MD Primary Care Provide r Encounter Details Date Type Department Care Team (Late st Contact Info) Description 03/07/2023 Orders Only [facility] [address] [place] [address] Deanne Chan LPN Social History Tobacco Use [...] Description 08/18/2025 11:15 AM EST Office Visit [facility] [address] [place] [address] Katherine Joseph MD [address] [place] [address] documented as of this encounter Visit Diagnoses Not on filedocumented in this encounter Care Teams Managing Director Relationship Specialty Start Date End Date Katherine Joseph MD [address] [place] [address] [phone] PCP - General Family Medicine 05/23/18 documented as of this encounter
--- OUTSIDE RECORDS SUMMARY | 2025-06-21 09:01 | XMS_ITS | Encounter Summary ---
Author Organization [employer] Address [address] [facility] 7t [place] [address] Care Team Providers Care Pilot Name Role Phone Katherine Joseph MD Primary Care Provide r Reason for Visit * Reason Onset Date Comments Med Refill 11/29/2023 Encounter Details Date Type Department Care Team ([facility] st Contact Info) Description 11/29/2023 Telephone [facility] [address] [place] [address] Katherine Joseph MD [address] [place], [place] [phone] Med Refill Social History Tobacco Use Types [...] Telephone Encounter - Deanne Chan LPN - 11/29/2023 1:32 PM EDT Medication pended to PCP. * Telephone Encounter - Santiago Blake - 11/29/2023 1:16 PM EDT TC from pt requesting medication refill. Medications needing refill : tamsulosin (Flomax) 0.4 MG 24 hr capsule and lisinopril-hydroCHLOROthiazide 20-12.5 MG ,tablet ,nabumetone (Relafen) 750 MG tablet traZODone (Desyrel) 50 MG tablet To be sent to: [facility] - [place], [place] - [address] [place] [address] documented in this encounter Plan of Treatment Upcoming Encounters Date Type Department Care Team (Late st Contact Info) Description 08/18/2025 11:15 AM EST Office Visit [facility] [address] [place] [address] Katherine Joseph MD [address] [place] [address] documented as of this encounter Visit Diagnoses Not on filedocumented in this encounter Care Teams Pilot Relationship Specialty Start Date End Date Katherine Joseph MD [address] [place] [address] PCP - General Family Medicine 05/23/18 documented as of this encounter
--- OUTSIDE RECORDS SUMMARY | 2025-06-21 09:01 | XMS_ITS | Clinical Summary ---
Author Organization [employer] Address [address] [place] [address] Care Team Providers Care Sales Agent Pest Control Service Name Role Phone Katherine Joseph MD Primary Care Provide r Allergies No known active allergies Medications Glycerin-Hyprome llose-PEG 400 (Artificial Tears) 0.2-0.2-1 % solutionIndicati ons:Dry eyes USE 1 DROP IN EACH EYE NEEDED FOR DRY EYES 15 mL 11 09/07/20 23 Active acetaminophen (Tylenol 8 Hour) 650 MG ER tablet TAKE 2 TABLETS BY MOUTH EVERY 8 HOURS NEEDED SWALLOW WHOLE WITH WATER DO NOT BREAK, CRUSH, DISSOLVE OR CHEW 60 tablet 11/13/19 24 Active traZODone (Desyrel) 100 MG tabletIndication s:Primary insomnia TAKE 1 TABLET BY MOUTH AT BEDTIME 30 tablet 04/09/20 24 Active docusate sodium (Colace) 100 MG capsuleIndicatio ns:Constipation, unspecified constipation type TAKE 1 CAPSULE BY MOUTH TWICE DAILY NEEDED 60 capsule 11 12/06/19 25 Active nabumetone (Relafen) 750 MG tabletIndication s:Lumbar back pain TAKE 1 TABLET BY MOUTH TWICE DAILY 40 tablet 01/29/20 25 Active lisinopril-hydro CHLOROthiazide 20-12.5 MG tablet TAKE 1 TABLET BY MOUTH EVERY DAY IN THE MORNING 90 tablet 1 04/21/20 25 Active polyvinyl alcohol (Liquifilm Tears) 1.4 % ophthalmic solutionIndicati ons:Dry eyes PLACE 1 DROP IN EACH EYE EVERY 2 HOURS NEEDED FOR DRY EYES 15 mL 1 05/06/20 25 Active amLODIPine (Norvasc) 5 MG tabletIndication s:Essential hypertension TAKE 1 TABLET BY MOUTH EVERY DAY 30 tablet 5 08/26/20 25 Active tamsulosin (Flomax) 0.4 MG 24 hr capsuleIndicatio ns:Benign prostatic hyperplasia with urinary frequency TAKE 1 CAPSULE BY MOUTH DAILY 30 MINUTES AFTER THE SAME MEAL EVERY DAY 90 capsule 06/03/20 25 Active acetaminophen (Tylenol 8 Hour) 650 MG ER tabletIndication s:Pain in both hands TAKE 2 TABLETS BY MOUTH EVERY 8 HOURS NEEDED. DO NOT BREAK, CRUSH, DISSOLVE OR CHEW 90 tablet 1 06/10/20 25 Active acetaminophen (Tylenol 8 Hour) 650 MG ER tabletIndication s:Pain in both hands TAKE 2 TABLETS BY MOUTH EVERY 8 HOURS NEEDED DO NOT BREAK, CRUSH, DISSOLVE OR CHEW 90 tablet 1 01/11/20 25 025 Discontinued tamsulosin (Flomax) 0.4 MG 24 hr capsuleIndicatio ns:Benign prostatic hyperplasia with urinary frequency TAKE 1 CAPSULE BY MOUTH EVERY DAY 30 MINUTES AFTER THE SAME MEAL EVERY DAY 90 capsule 03/04/20 25 025 Discontinued Active Problems Problem Noted Date Diagnosed Date Resistant hypertension 07/30/2024 Encounter for preventive care 01/25/2024 Assessment & Plan (01/25/2024 2:39 PM EDT): See HPI Dry eyes 09/07/2023 Primary insomnia 07/24/2023 Assessment & Plan (01/25/2024 2:39 PM EDT): Sleep hygiene counseling Trazodone increase to 100mg at bed time Assessment & Plan (09/07/2023 11:38 AM EST): Now better will c/w sleep hygiene and trazodone 50mg at bed time Assessment & Plan (07/24/2023 3:11 PM EST): Counseling done about sleep hygiene (no caffeine, no screens before sleeping, no to much liquids or food before bed) I will start I'm on trazadone 50mg at bed time Pain in both hands 07/24/2023 Colon cancer screening 07/24/2023 Bilateral low back pain with left-sided sciatica 11/24/2022 Joint pain in both hands 11/24/2022 Multiple joint pain 11/24/2022 Shoulder pain 11/24/2022 Spasm 11/24/2022 Alcoholism (CMS/HCC) 12/26/2017 Anemia 12/26/2017 Benign prostatic hyperplasia 12/26/2017 Essential hypertension 12/26/2017 Assessment & Plan (07/30/2024 11:39 AM EST): Maintenance: BMP: ordered Lipid Panel: ordered ASCVD Risk: Calculate pending updated labs - Aerobic exercise to reduce BP. Initial goal of 30 min walk 3-5x/week. Increase as tolerated. - low-sodium diet (goal: <2g/day) and heart healthy diet such as DASH to reduce BP and prevent ASCVD. - Home BP monitoring 1-2 x day with goal of <140/90. - Seek immediate medical attention for chest pain, palpitations, SOB, syncope, or sudden changes in mental status. - Do not change or discontinue current prescriptions without first consulting health care provider Assessment & Plan (04/30/2024 4:37 PM EDT): Blood pressure is not control I added today amlodipine 5mg daily c/w lisinopril/hydrochlorothiazide 20/12.5mg daily I advise low Na diet and weigh reduction Assessment & Plan (01/25/2024 2:39 PM EDT): Maintenance: BMP: ordered Lipid Panel: ordered ASCVD Risk: Calculate pending updated labs - Aerobic exercise to reduce BP. Initial goal of 30 min walk 3-5x/week. Increase as tolerated. - low-sodium diet (goal: <2g/day) and heart healthy diet such as DASH to reduce BP and prevent ASCVD. - Home BP monitoring 1-2 x day with goal of <140/90. - Seek immediate medical attention for chest pain, palpitations, SOB, syncope, or sudden changes in mental status. - Do not change or discontinue current prescriptions without first consulting health care provider Assessment & Plan (07/24/2023 3:12 PM EST): Maintenance: BMP: ordered Lipid Panel: ordered ASCVD Risk: Calculate pending updated labs - Aerobic exercise to reduce BP. Initial goal of 30 min walk 3-5x/week. Increase as tolerated. - low-sodium diet (goal: <2g/day) and heart healthy diet such as DASH to reduce BP and prevent ASCVD. - Home BP monitoring 1-2 x day with goal of <140/90. - Seek immediate medical attention for chest pain, palpitations, SOB, syncope, or sudden changes in mental status. - Do not change or discontinue current prescriptions without first consulting health care provider Hyperlipidemia 12/26/2017 Impacted cerumen 12/26/2017 Mood disorder 12/26/2017 Noncompliance with treatment 12/26/2017 Seasonal allergic conjunctivitis 12/26/2017 Smoker 12/26/2017 Tooth disorder 12/26/2017 Tremor 12/26/2017 Encounters Date Type Department Care Team Description 06/21/2025 Orders Only GENERIC EXTERNAL DATA DEPARTMENT Provider, Generic External Data 06/12/2025 3:00 PM EDT Office Visit [facility] [address] [place] [address] Angelique Sanchez, OD Dry eye syndrome of both eyes (Primary Dx); Early cataracts, bilateral; Presbyopia of both eyes 06/12/2025 Travel 06/09/2025 Refill [facility] [address] [place] [address] Katherine Joseph MD Pain in both hands 06/02/2025 Refill [facility] [address] [place] [address] Katherine Joseph MD Benign prostatic hyperplasia with urinary frequency 05/05/2025 Refill [facility] [address] [place] [address] Katherine Joseph MD Dry eyes; Essential hypertension 04/20/2025 Refill [facility] [address] [place] [address] Katherine Joseph MD 04/10/2025 Telephone [facility] [address] [place] [address] Angelique Sanchez, OD from Last 3 Months Immunizations Immunization Administration Dates Next Due Influenza injectable quadriv alent IIV4 with preservative 06/29/2016 Influenza, IIV3, injectable 10/30/2008 Influenza, seasonal, injectable, preservative fr ee 07/30/2024 Pfizer Covid-19 Vaccine 12+ 07/30/2024 Pneumococcal Conjugate PCV 20 01/25/2024 Pneumococcal Polysaccharide PPSV23 10/30/2008 TD (adult), 2 Lf tetanus tox oid, preservative free, adsorbed 10/30/2008 Zoster, Recombinant 04/03/2024,02/02/2024 Social History Tobacco Use Types Packs/Day Years Used Date Smoking Tobacco: Some Days Cigarettes Passive Smoke Exposure: Current Tobacco Cessation:Ready to Q uit: Not Asked; Counseling Given: Not Answered Alcohol Use Standard Drinks/Week Comments Yes 0 [...] Orientation Straight 07/11/2022 10 :14 AM EDT Last Filed Vital Signs Vital Sign Reading Time Taken Comments Blood Pressure 142/92 07/30/2024 11:20 AM EST Pulse 103 07/30/2024 10:59 AM EST Temperature 36.1 C (97 F) 07/30/2024 10:59 AM EST Respiratory Rate 20 07/30/2024 10:59 AM EST Oxygen Saturation 98% 07/30/2024 10:59 AM EST Inhaled Oxygen Concentration - - Weight 96.4 kg (212 lb 9.6 oz) 07/30/2024 10:59 AM EST Height 170.2 cm (5' 7 ) 07/30/2024 10:59 AM EST Body Mass Index 33.3 07/30/2024 10:59 AM EST Plan of Treatment Upcoming Encounters Date Type Department Care Team (Late st Contact Info) Description 08/18/2025 11:15 AM EST Office Visit [facility] [address] [place] [address] Katherine Joseph MD [address] [place] [address] Health Maintenance Due Date Last Done Comments CT Colonography 1963 FIT DNA/Cologuard 1963 FIT 1963 FOBT 1963 HIV Screening 1963 Lipid Panel 1963 Sigmoidoscopy 1963 Disability Screening 1963 Alcohol/Substance Use Screening 1975 Hepatitis C Screening 1981 DTaP/Tdap/Td Vaccines (1 - Tdap) 10/31/2008 10/30/2008 Colonoscopy 10/12/2021 10/12/2016 Colorectal Cancer Screening 10/12/2021 SDOH Screening 04/15/2025 04/15/2024 Influenza Vaccine (#1) 2025 , 06/29/2016, 10/30/2008 Depression Screening 07/30/2025 07/30/2024, 07/30/2024 Tobacco Screening 06/12/2026 06/12/2025 RSV Patients and Patients Aged 60 years or older (1 - 1-dose 75+ series) 2038 Pneumococcal Vaccine: 50+ Years Completed 01/25/2024, 10/30/2008 Zoster Vaccines Completed 04/03/2024, 02/02/2024 COVID-19 Vaccine Completed 07/30/2024, 09/24/2021, 03/02/2021 HIB Vaccines Aged Out No longer eligi ble based on patient's age to complete this topic HPV Vaccines Aged Out No longer eligi ble based on patient's age to complete this topic Hepatitis A Vaccines Aged Out No long er eligible based on patient's age to complete this topic Hepatitis B Vaccines Aged Out No long er eligible based on patient's age to complete this topic IPV Vaccines Aged Out No longer eligi ble based on patient's age to complete this topic Meningococcal B Vaccine Aged Out No l onger eligible based on patient's age to complete this topic Meningococcal Vaccine Aged Out No noris estella eligible based on patient's age to complete this topic RSV under 20 months Aged Out No longe r eligible based on patient's age to complete this topic Rotavirus Vaccines Aged Out No longer eligible based on patient's age to complete this topic Procedures Procedure Name Priority Date/Time Associated Diagnosis Comments CBC WITH AUTO DIFFERENTIAL Routine 06/21/2025 8:40 AM EDT [facility] COLONOSCOPY Routine 10/12/2016 from Last 3 Months or Most Recently Relevant to Health Maintenance Results * (ABNORMAL) CBC auto differential (06/21/2025 8:40 AM EDT) White Blood Count 12.2(H) 4.8 - 10.8 X10*3/uL [facility] Red Blood Count 4.06(L) 4.60 - 5.80 X10*6/uL [facility] Hemoglobin 12.5(L) 14.0 - 18.0 g/dl [facility] Hematocrit 37.4(L) 42.0 - 52.0 % [facility] Mean Corpuscular Volume 92.1 80.0 - 98.0 fL [facility] Mean Corpuscular Hemoglobin 30.8 27.0 - 33.0 pg [facility] Mean Corpuscular HGB Conc 33.4 31.0 - 36.0 g/dl [facility] Red Cell Distribution Width 13.1 11.0 - 16.0 % [facility] Platelet Count 168 160 - 400 X10*3/uL [facility] Mean Platelet Volume 10.1 9.4 - 12.4 fL [facility] Neutrophils Percent Auto 67.6 45 - 73 % [facility] Imm Gran Pct Auto 0.2 0.0 - 0.4 % [facility] Lymphocytes Percent Auto 21.2 20 - 40 % [facility] Monocytes Percent Auto 8.7 2 - 11 % [facility] Eosinophils Percent Auto 2.0 0 - 4 % [facility] Basophils Percent Auto 0.3 0 - 2 % [facility] NRBC Pct Auto 0.0 0.0 - 0.2 /100WBC [facility] Neutrophils Absolute Auto 8.2 2.0 - 8.3 x10*3/uL [facility] Imm Gran Abs Auto 0.03 0.00 - 0.03 X10*3/uL [facility] Lymphocytes Absolute Auto 2.6 1.2 - 4.9 X10*3/uL [facility] Monocytes Absolute Auto 1.1 0.1 - 1.2 X10*3/uL [facility] Eosinophils Absolute Auto 0.2 0.0 - 0.4 X10*3/uL [facility] Basophils Absolute Auto 0.0 0.0 - 0.2 X10*3/uL [facility] NRBC Abs Auto 0.000 0.0 - 0.012 X10*3/uL [facility] 06/21/2025 8:40 AM EDT 06/21/2025 8:43 AM EDT us Generic External Data Provider LAB BLOOD ORDERAB LES Final Result [facility] [address] [place] [address] [phone] * Hm Colonoscopy (10/12/2016) us Historical Provider HEALTH MAINTENANCE Final Result from Last 3 Months or Most Recently Relevant to Health Maintenance Insurance [facility] < 65 [place] [id number] Care Teams Sales Agent Pest Control Service Relationship Specialty Start Date End Date Katherine Joseph MD [address] [place] [id number] PCP - General Family Medicine 05/23/18
[2025-06-21 09:02] LABS: Alanine Aminotransferase 19 U/L (0-40); Albumin Level 4.1 g/dL (3.5-5.0); Alkaline Phosphatase 50 U/L (39-117); Anion Gap 11 (12-20); Aspartate Amino Transferase 28 U/L (5-37); Blood Urea Nitrogen 14 mg/dL (9-16); Calcium 9.0 mg/dL (8.4-10.2); Carbon Dioxide 26 mmol/L (22-29); Chloride 103 mmol/L (96-108); Creatinine Clr Calc Pharmacy 94.1; Estimated Glomerular Filt Rate > 60; Lipase 41 U/L (8-78); Magnesium 2.0 mg/dL (1.6-2.6); Potassium 3.4 mmol/L (3.3-5.1); Sodium 137 mmol/L (135-145); Total Protein 7.0 g/dL (6.5-8.0)
[2025-06-21] MEDS: iohexoL 350 MG/ML 100 ML INFUS..BTL IV (09:35)
--- NOTE | 2025-06-21 09:55 | ED_ITS ---
HPI - Abdominal Pain General Chief Complaint: Abdominal Pain Stated Complaint: lump on abd vomiting Time Seen by Provider: 06/21/25 08:29 Source: patient, family, RN notes reviewed and highway inspector Mode of arrival: ambulatory Limitations: language barrier History of Present Illness ED Provider: Bia Sue PA-C HPI narrative: This is a 60-year-old Indonesian-speaking male, with a past medical history of hypertension, who presents emergency department with concerns of intermittent diffuse abdominal pain with the associated nausea and nonbloody vomiting and diarrhea. Patient reports that his abdominal pain was in the right lower and left lower quadrant. States that the pain is waxing and waning in severity, denies any current pain. These symptoms started approximately 2 days ago. Patient also reports a lump in the right inner groin, no testicular pain or swelling. No urinary symptoms. Family at bedside reports that patient's brother just several days ago and believes that patient is under a significant amount of stress. Patient denies any fevers, chills, chest pain, shortness of breath, current pain, nausea. Denies taking any medications prior to his arrival today. No other complaints or concerns at this time. MD elicited complaint: abdominal pain Onset (ago): day(s) Pain Consistency: constant Quality: cramping Radiation: none Associated symptoms: nausea, vomiting and diarrhea Related Data Previous Rx's ?Medication ?Instructions ?Recorded folic acid 1 mg tablet 1 mg PO DAILY #90 tabs 11/04 thiamine HCl (vitamin B1) 100 mg 100 mg PO DAILY #90 t abs 11/04/22 tablet cefuroxime axetil 500 mg tablet 500 mg PO BID 7 days # 14 tabs 06/21/25 Allergies Allergy/AdvReac Type Severity Reaction Status Date / Time No Known Allergies (No Known Allergy Verified 06/21/25 08:20 Allergies*) Review of Systems Review of Systems Constitutional : No Fever, No Chills ENT/Mouth : No sore throat, No Rhinorrhea Eyes: No Eye Pain, No Swelling, No Redness Cardiovascular : No Chest Pain, No SOB Respiratory : No Cough, No Sputum Gastrointestinal : + Nausea, + Vomiting, + Diarrhea, + abdominal Pain Genitourinary : No Dysuria, No Hematuria Musculoskeletal : No joint pain, No Myalgias, No Joint Swelling Skin : No Skin Lesions Neuro : No Weakness, No Numbness, No Headache All other systems reviewed and are negative Yes all other systems are reviewed and are negative Constitutional: Reports as per [facility] Social History Social History Alcohol intake: current Alcohol intake frequency: 3 or more drinks per day Substance Use Type: Marijuana Physical Exam ED Vital Signs: Vital Signs - 24 hr 06/21/25 08:17 06/21/25 12:18 06/21/25 13:11 Temperature 97.4 F 98.5 F 98.5 F Pulse Rate 96 71 71 Respiratory Rate 18 13 13 Blood Pressure 140/89 H 137/92 H 137/92 H Pulse Oximetry 97 96 96 Oxygen Delivery Method Room Air Room Air Room Air BMI result Body Mass Index 30.9 Const General: cooperative, comfortable and no acute distress Orientation/consciousness: patient oriented x3 Limitations: no limitations HENMT Head: Yes normal to inspection, Yes normocephalic and Yes atraumatic Ears: hearing grossly normal bilaterally General nose exam: Normal external nose present Face and sinus: Yes normal facial exam Mouth: Normal oral and palatal mucosa present, oropharynx normal and moist mucous membranes Throat: Yes posterior oropharynx normal Eyes General: appearance normal, both eyes and all related structures Eyelids: Yes eyelids normal Conjunctivae: conjunctivae normal Sclerae: sclerae normal Pupils: Equal, round and reactive pupils present EOM: EOMs intact bilaterally Neck Neck: Yes normal visual inspection, Yes full ROM and Yes no lymphadenopathy Lymphatic: no lymphadenopathy noted Chest Chest palpation & inspection: normal inspection of the chest Resp Effort & Inspection: normal respiratory effort and able to speak in complete sentences Auscultation: clear to auscultation bilaterally, no crackles, no rales, no rhonchi and no wheezes Cardio Rate: regular rate Rhythm: regular rhythm Heart sounds: S1 normal heart sound present and S2 normal heart sound present GI Other: Abdomen is soft, nontender, nondistended. Right inguinal region with fullness noted, nontender, reproducible right inguinal hernia noted. Does not extend into the scrotal region. This examination was performed with Justa Colindres RN, present at all times. Inspection: Yes normal to inspection Skin General skin exam: no rashes or lesions noted Trauma: no lacerations or abrasions Wounds: no wounds Neuro General: patient oriented x3 and moves all extremities Cranial nerves: Yes Equal, round and reactive pupils present Extrem General: Yes normal to inspection Right upper extremity: normal to inspection Left upper extremity: normal to inspection Right lower extremity: normal to inspection Left lower extremity: normal to inspection Medical Decision Making Medical Decision Making [facility] Narrative: This is a 60-year-old male who presents emergency department with complaints of abdominal pain, nausea, vomiting and diarrhea started several days ago. On arrival, patient well-appearing, appears to be under no acute distress, vital signs reveal the patient is slightly hypertensive at 140/89, he has a history of retention, he has no chest pain or shortness for breath. He states that he does not currently have active abdominal pain at this time. On examination, abdomen is soft, nontender, nondistended, he does have a right inguinal hernia present, does not appear to be strangulated, nontender, no overlying skin changes or warmth. Differential diagnoses include diverticulitis, diverticulosis, appendicitis, gastroenteritis, electrolyte derangement. Will obtain labs, CT abdomen and pelvis to rule out any acute pathology. Patient declining pain medication at this time. Infection is not suspected at this time Labs returned, he has slight leukocytosis at 12.2, slightly anemic at 12.5/37.4, chemistry revealing no significant electrolyte derangement. Urine with high specific gravity, trace leuk esterases and wbc's, he does have squamous cells and 3+ bacteria. Cat scan revealing thickened bladder wall, he has no urinary symptoms however given thickened bladder as well as appearance of UA, will treat as a urinary tract infection. He also has evidence of mild enteritis as well as an inguinal hernia. Advised to follow-up with his primary care physician regarding the finding of his bladder wall as this could be attributed to acute cystitis or could be another process therefore he understands and will follow-up with his primary care physician outpatient. Given referral to Kesha singh for follow-up in regards to the inguinal hernia. Given return precautions, he is eating and drinking without difficulty, overall feeling well, patient stable for discharge. Differential Diagnosis Differential Diagnoses: The differential diagnosis associated with the presentation includes See above Lab Data [facility] Lab Attestation statement: I reviewed the patient's lab results. See [facility] 06/21/25 08:40 06/21/25 08:40 Labs: Lab Results 06/21/25 06/21/25 Range/Units 08:40 11:09 WBC 12.2 H (4.8-10.8) X10*3/uL RBC 4.06 L (4.60-5.80) X10*6/uL Hgb 12.5 L (14.0-18.0) g/dl Hct 37.4 L (42.0-52.0) % MCV 92.1 (80.0-98.0) fL MCH 30.8 (27.0-33.0) pg MCHC 33.4 (31.0-36.0) g/dl RDW 13.1 (11.0-16.0) % Plt Count 168 (160-400) X10*3/uL MPV 10.1 (9.4-12.4) fL Immature Gran % (Auto) 0.2 (0.0-0.4) % Neut % (Auto) 67.6 (45-73) % Lymph % (Auto) 21.2 (20-40) % [place] % (Auto) 8.7 (2-11) % Eos % (Auto) 2.0 (0-4) % Baso % (Auto) 0.3 (0-2) % Lymph # (Auto) 2.6 (1.2-4.9) X10*3/uL [place] # (Auto) 1.1 (0.1-1.2) X10*3/uL Eos # (Auto) 0.2 (0.0-0.4) X10*3/uL Baso # (Auto) 0.0 (0.0-0.2) X10*3/uL Abs Immat Gran (auto) 0.03 (0.00-0.03) X10*3/uL Absolute Neuts (auto) 8.2 (2.0-8.3) x10*3/uL Absolute Nucleated RBC 0.000 (0.0-0.012) X10*3/uL Nucleated RBC % (auto) 0.0 (0.0-0.2) /100WBC Sodium 137 (135-145) mmol/L Potassium 3.4 (3.3-5.1) mmol/L Chloride 103 (96-108) mmol/L Carbon Dioxide 26 (22-29) mmol/L Anion Gap 11 L (12-20) BUN 14 (9-16) mg/dL Creatinine 0.84 (0.5-1.4) mg/dL Estim Creat Clear Calc 94.1 Estimated GFR > 60 Random Glucose 174 H (60-115) mg/dL Calcium 9.0 (8.4-10.2) mg/dL Magnesium 2.0 (1.6-2.6) mg/dL Total Bilirubin 0.8 (0.0-1.0) mg/dL Direct Bilirubin 0.3 (0.0-0.5) mg/dL AST 28 (5-37) U/L ALT 19 (0-40) U/L Alkaline Phosphatase 50 (39-117) U/L Total Protein 7.0 (6.5-8.0) g/dL Albumin 4.1 (3.5-5.0) g/dL Lipase 41 (8-78) U/L Urine Color Yellow Urine Appearance Clear Urine pH 7.0 (5.0-9.0) Ur Specific [place] >= 1.030 H (1.005-1.025) Urine Protein Negative (Neg-Trace) mg/dL Urine Glucose (UA) Negative (Negative) mg/dL Urine Ketones Negative (Negative) mg/dL Urine Blood Negative (Negative) Urine Nitrite Negative (Negative) Ur Leukocyte Esterase Trace H (Negative) Urine RBC 0-2 (0-2) /HPF Urine WBC 11-20 H (0-5) /HPF Ur Squamous Epith Cells 11-20 (0-2) /HPF Urine Bacteria 3+ (None Seen) Hyaline Casts 0-2 (0-2) /LPF Radiology Impression Discussion of test interpretation with radiology: I have reviewed the radiologist's reading. Radiologist Impression: Findings: No consolidation or effusion. The liver, gallbladder, spleen, adrenal glands and pancreas are unremarkable. The kidneys, ureters are within normal limits. The bladder is significantly thick-walled. The prostate gland is unremarkable. There is no bowel obstruction or free air. There is gas and fluid throughout nondistended small and large bowel, nonspecific. Right-sided fat containing inguinal hernia. Mild atherosclerotic disease noted. No retroperitoneal or mesenteric adenopathy. No acute osseous finding. Impression: Abnormally thick-walled bladder. Correlation for cystitis. Gas and fluid throughout nondistended small and large bowel, nonspecific. This can be seen with mild enteritis. No obstruction, free air or abscess. Additional incidental findings. This document has been electronically signed by: Ziyad Morris MD on 06/21/2025 10:14:02 Dictated By: Ziyad Morris MD Medications Administered Discontinued Medications Generic Name Dose Route Start Last Admin Trade Name Polina PRN Reason Stop Dose Admin Iohexol 100 ml 06/21/25 09:34 06/21/25 09:35 Iohexol 350 Mg/Ml 100 Ml Infus..Btl IV 06/21/25 09:35 85 ml ONCE ONE Administration Discharge Plan Discharge Clinical Impression: Gastroenteritis, Inguinal hernia, Urinary tract infection Patient Disposition: Home, Self-Care Instructions: Urinary Tract Infection in Men (ED), Gastroenteritis (ED), Acute Nausea and Vomiting (ED) Additional Instructions: You were seen in the emergency department due to abdominal pain. Your CAT scan shows mild enteritis, this is likely a virus. Please stick to a bland diet, avoid spicy or fried foods. Avoid dairy. You also have a inguinal hernia, please call the surgeon to follow-up. Drink plenty of fluids get plenty of rest. Your urine does appear to be contaminated however given you do have a thickened bladder on your CAT scan which could be reflective of a urinary tract infection I am going to go ahead and treat you for urinary tract infection. Please follow-up with your primary care physician regarding this as you may need further evaluation. Please take full course of antibiotics as prescribed, finish the entire course even if your symptoms improve. If any new or worsening symptoms occur including but not limited to fevers, body aches, severe abdominal pain, nausea, vomiting, chest pain, shortness of breath, please seek emergent care. Prescriptions: New cefuroxime axetil 500 mg tablet 500 mg PO BID 7 Days Qty: 14 0RF No Action thiamine HCl (vitamin B1) 100 mg tablet 100 mg PO DAILY Qty: 90 0RF folic acid 1 mg tablet 1 mg PO DAILY Qty: 90 0RF Referrals: [facility] General Surgeons [Provider Group, General Surgery] Referral Note: inguinal hernia Interventions: ED Discharge Assessment Last Done: 06/21/25 13:11 Discharge Date/Time: 06/21/25 13:12 Print Language: Indonesian
[2025-06-21 11:15] LABS: Appearance Urine Clear; Glucose Urine UA Negative (Negative); PH 7.0 (5.0-9.0); Specific Gravity - Urine >= 1.030 (1.005-1.025); UMIC TRIGGER UACC YES
[2025-06-21 11:17] LABS: UACC Culture Trigger YES
[2025-06-21 12:18] VITALS: BP 137/92; PULSE 71; RESP 13; TEMP 36.9; O2SAT 96
[2025-06-21 13:11] VITALS: BP 137/92; PULSE 71; RESP 13; TEMP 36.9; O2SAT 96
== END 2025-06-21 13:12 | disposition home or self-care (01) ==
PROVIDERS: Emergency Provider Emergency Medicine; PCP Internal Medicine
DX: K52.9 Noninfective gastroenteritis and colitis, unspecified (principal); K40.90 Unilateral inguinal hernia, without obstruction or gangrene, not specified as recurrent; N39.0 Urinary tract infection, site not specified; R10.31 Right lower quadrant pain; R10.32 Left lower quadrant pain; R11.2 Nausea with vomiting, unspecified; F12.90 Cannabis use, unspecified, uncomplicated; Z79.899 Other long term (current) drug therapy
CPT/HCPCS: 36415; 74177; 80053; 81001; 82248; 83690; 83735; 85025; 87086; 99284; 99285; Q9967

== ENCOUNTER → 2025-06-21 09:18 | Outpatient (BNV) | payer OTHER, SELFPAY | PROVIDERS: Emergency Provider Emergency Medicine; PCP Internal Medicine; Visit Provider Radiology Vascular & Interventional Radiology | DX: R14.0 Abdominal distension (gaseous) (principal); K44.9 Diaphragmatic hernia without obstruction or gangrene | CPT/HCPCS: 74177 ==

== ENCOUNTER 2025-08-22 09:08 | Outpatient (AMB) | payer OTHER, SELFPAY ==
[2025-08-22 09:28] VITALS: BP 151/97; PULSE 87; BMI 32.1
--- NOTE | 2025-08-22 09:28 | A.OFFVIS_ITS ---
Vital Signs 08/22/25 09:28 Height 5 ft 6 in Weight 199 lb BMI 32.1 BP 151/97 H Blood Pressure Location Rt brachial Position Sitting Pulse 87 Intake Visit Reasons: [facility] Intake Note: Patient referred by PCP Dr. Boyd for assessment of Right inguinal hernia. Patient c/o: bulging out. Denies pain. Reports hx of Umbilical hernia repair at [facility] many years ago. Imaging: CT abdomen pelvis~ 06-21-2025 Sewer Pipe Offbearer Required: Yes Sewer Pipe Offbearer Language: Romanian Information Interpreted: non-clinical & clinical (Renetta MARIE) Accompanied by: Pallavi sister Allergies No Known Allergies (No Known Allergies*) Allergy (Verified 08/22/25 09:34) Medication List - Last Reconciled 08/22/25 by Callum Keen MD amlodipine 5 mg PO DAILY folic acid 1 mg PO DAILY hydroxyzine HCl 10 mg PO TID PRN lisinopril-hydrochlorothiazide 20-12.5 mg 1 tab PO QAM tamsulosin 0.4 mg PO DAILY thiamine HCl (vitamin B1) 100 mg PO DAILY HPI Comments Details: Patient reports longstanding history of a right inguinal hernia. He can ?push it back in? but he finds it bothersome when he is interested in having it repaired. CT scan of his abdomen and pelvis is indicative of a fat containing right inguinal hernia. Past surgical history significant for open umbilical hernia repair at [facility] many years ago. [facility] Medical History (Updated 08/22/25 @ 10:11 by Callum Keen MD) HTN (hypertension) Surgical History (Updated 08/22/25 @ 09:36 by CYNTHIA Winter) Hx of umbilical hernia repair Social History (Updated 08/22/25 @ 09:36 by CYNTHIA Winter) Alcohol intake: current Alcohol intake frequency: 3 or more drinks per day Tobacco use type: Cigarette Cigarettes Per Day: 7 Substance Use Type: Marijuana Review of Systems Const All systems reviewed & are unremarkable except as noted in HPI and below Physical Exam Vital Signs: Last Vital Signs Pulse 87 08/22/25 09:28 BP 151/97 H 08/22/25 09:28 BMI result Body Mass Index 32.1 Const General: cooperative, healthy appearing, comfortable, no acute distress and well developed Nutritional Appearance: obese Orientation/consciousness: oriented to person, oriented to place and oriented to time HEENT Head: Yes normal to inspection Eyes General: appearance normal, both eyes and all related structures Sclerae: sclerae normal Pupils: Equal, round and reactive pupils present EOM: EOMs intact bilaterally Neck Neck: Yes normal visual inspection Chest Chest palpation & inspection: normal inspection of the chest Resp Effort & Inspection: normal respiratory effort and able to speak in complete sentences Cardio Rhythm: regular rhythm GI Other: Curvilinear supraumbilical scar consistent with a prior history of open umbilical hernia repair. No evidence of recurrence. Reducible moderate right inguinal hernia, nontender. No evidence of hernia on the left side. No evidence of palpable hepatosplenomegaly or other masses or hernias. Inspection: Yes normal to inspection Back/Spine/Pelvis Thoracic/Lumbar Spine: thoracic and lumbar spine normal to inspection Neuro General: oriented to person, oriented to place and oriented to time Cranial nerves: Yes CN's II-XII intact bilaterally and Yes Equal, round and reactive pupils present Assessment & Plan Assessment & Plan (1) Right inguinal hernia: Code(s): K40.90 - Unilateral inguinal hernia, without obstruction or gangrene, not specified as recurrent Category: Medical Plan: Offered the patient intervention in the form of laparoscopic possible open right inguinal hernia repair. I reviewed with them the risks involved. These include but are not limited to the risk of bleeding the risks infection including mesh infection the risk of damage to surrounding structures, the risk of damage to the spermatic cord resulting in testicular compromise, the risk of conversion to an open procedure, the risk of hernia recurrence risk of chronic pain the risk of unsightly scarring were all reviewed with him in detail. He told me that he understood. Told me that he considered his options. He told me that he understood and accepted the risks he described as inherent to such an endeavor and lastly indicated that despite the risk he still wished to proceed with operative intervention. Medications: Discontinued cefuroxime axetil Discontinued Reason: Patient Completed Course 500 mg PO BID 14 tabs 0RF 7 days Coding Level of Care Code New Pt Level 3 (56081) Diagnoses Right inguinal hernia K40.90 Time Spent (min) 30 Comment Patient visit record review and coordination of care time
== END 2025-08-22 10:15 | disposition home or self-care (01) ==
LOC: HO.HGS 09:08
PROVIDERS: PCP Internal Medicine; Visit Provider Surgery
DX: K40.90 Unilateral inguinal hernia, without obstruction or gangrene, not specified as recurrent (principal)
CPT/HCPCS: 99203

== ENCOUNTER → 2025-08-22 09:08 | Outpatient (BNVA) | payer OTHER, SELFPAY | PROVIDERS: PCP Internal Medicine; Visit Provider Surgery | DX: K40.90 Unilateral inguinal hernia, without obstruction or gangrene, not specified as recurrent (principal) | CPT/HCPCS: 99202 ==